=== PATIENT | male | born 1935 | race Caucasian/White ===

== ENCOUNTER 2018-10-23 05:58 | Day surgery (SDC) | payer MEDICARE, OTHER, SELFPAY ==
[2018-10-23] VITALS (8 sets, daily range): BP systolic 63–118; BP diastolic 42–80; PULSE 44–79; RESP 16–18; TEMP 36.1–36.6; O2SAT 89–97; BMI 41.1
--- NOTE | 2018-10-23 06:14 | EKG12_ITS ---
Test Reason : PRE OP Blood Pressure : / mmHG Vent. Rate : 062 BPM Atrial Rate : 062 BPM P-R Int : 216 ms QRS Dur : 136 ms QT Int : 432 ms P-R-T Axes : 050 -33 -03 degrees QTc Int : 438 ms Sinus rhythm with 1st degree A-V block Left axis deviation Right bundle branch block Abnormal ECG No previous ECGs available Confirmed by MARQUISE BARRAGAN, PHANI ([id number]), science editor ALISIA PERRY ([id number]) on 10/26/2018 1:37:45 PM Referred By: Bola Mckoy Confirmed By:PHANI CAMARILLO MD
--- NOTE | 2018-10-23 10:07 | PCM.OPRPT ---
Problem List (1) Zenker diverticula Status: Acute (2) Dysphagia Status: Acute Qualifiers: Dysphagia type: esophageal phase Qualified Code(s): R13.10 - Dysphagia, unspecified Report of Operation Date of Procedure: 10/23/18 Pre-Operative Diagnosis: Zenker's diverticulum, dysphagia Post-Operative Diagnosis: same Surgery/Procedure Performed:: Direct laryngoscopy, esophagoscopy with dilation of cervical esophagus, aborted endoscopic diverticulotomy Description of Surgical Findings:: Tono is an 83-year-old male with a long-standing Zenker's diverticulum. This is resulted in progressive dysphasia which had become bothersome after an observation period of 15 years. Repeat barium esophagram showed a 3 cm left Zenker's diverticulum and the patient was offered attempt at endoscopic diverticulectomy for relief of his swallowing complaints. The risks, alternatives, potential complications, and benefits were discussed at length and any questions answered to the patient and/or caregiver's satisfaction. Witnessed informed consent was obtained in the office, and the patient and/or caregiver was agreeable to proceed. Procedure went as follows: The patient was identified in the preoperative holding and brought to the operating room, placed under general anesthesia, and intubated. When appropriate anesthesia was obtained, the head of bed was rotated and the patient prepped and draped in usual sterile fashion. A dental guard or moistened gauze was then placed to protect the upper gums and the Weerda laryngoscope then introduced. Direct laryngoscopy was then carried out. The lateral posterior pharyngeal wall mucosa, tonsillar fossa, vallecula, piriforms, and epiglottis were noted to be normal in appearance. The true and false vocal folds were normal in appearance. The cervical esophageal inlet was then visualized. This is noted to be very tight which barely admitted the end of the laryngoscope. An NG tube placement was then attempted however this entered the diverticulum and was unable to be blindly placed down into the esophagus. Given this the lower endoscope was then withdrawn and a rigid esophagoscope introduced. The esophageal lumen was identified to the right of the diverticulum. The cricopharyngeal band was able to be identified however this was very difficult to bring into view given his limited jaw opening and his macroglossia. Using the esophagoscope the cricopharyngeus was dilated which did allow for then passage of the NG tube through the esophagus which was confirmed with aspiration of gastric contents. An attempt was then made to follow this with the [place], however once the cricopharyngeal band was brought into view the scope was unable to be opened to a point that would allow for the endoscopic stapler to be placed or to separate to the esophageal and diverticular lumen. Given this severe restriction of visualization and the risk for injury the attempt at the endoscopic diverticulectomy was then aborted. The endoscope was then withdrawn and the patient returned to anesthesia, was revived, and extubated without complication having tolerated the procedure well. I am hopeful that the dilation of the cricopharyngeus which was quite tight give him some improved relief and should he continue to have trouble and external diverticulectomy may be considered. Type of Anesthesia:: General Anesthesiologist: Nehemiah Edouard Special Medications: none Specimen's removed: none Drains: none Estimated Blood Loss (mL): 5 mL Fluids Replaced: 1200 mL Grafts/Implants Used: none - Complications none - Admit VTE Documentation VTE Present on Admission: No VTE Mechan Device Prophylaxis: SCD's VTE Pharm Prophylaxis ordered?: No
--- NOTE | 2018-10-23 10:20 | DCINST_ITS ---
- Discharge Diagnoses Current Active Problems: Current Active and Chronic Problems Zenker diverticula (Acute) Dysphagia (Acute) You will use the following diet at home:: Regular Your food should be the consistency of: Mechanical soft (ground) Your liquids should be the consistency of: Regular/Thin Discharge Activity: Return to Normal Activity Call your doctor if your incision/area has: Increased Pain/ Swelling Call your doctor if you observe: Fever of 101 or Higher, Uncontrolled pain Allergies/Adverse Reactions: Allergies Sulfa (Sulfonamide Antibiotics) Allergy (Verified 10/16/18 13:06) Unknown Medications to take at Discharge Allopurinol [Zyloprim] 150 mg PO DAILY 10/16/18 Apixaban [Eliquis] 5 mg PO BID 10/16/18 Furosemide [Lasix] 20 mg PO DAILY 10/16/18 Ranitidine HCl [Zantac] 150 mg PO BID 10/16/18 Vit C/E/Zn/Coppr/Lutein/Zeaxan [Preservision Areds 2 Softgel] 1 ea PO BID 10/16/18 Primary Care Physician: KANDICE PATINO [Other] Test Results: Test results from this visit will be discussed in further detail at your follow- up appointment, if applicable. Please Follow Up With: Bola Mckoy MD When: 2 weeks
[2018-10-23] MEDS: Lactated Ringers 1,000 ML 75 ML IV (10:48)
== END 2018-10-23 12:43 | disposition home or self-care (01) ==
LOC: SDC 06:00 → AC 06:03
PROVIDERS: Referring Provider Otolaryngology; Visit Provider Otolaryngology
PROC: (CPT 31528; principal; 2018-10-23 07:55)
DX: K22.5 Diverticulum of esophagus, acquired (principal); R13.10 Dysphagia, unspecified; Q38.2 Macroglossia; K21.9 Gastro-esophageal reflux disease without esophagitis; M19.90 Unspecified osteoarthritis, unspecified site; G47.30 Sleep apnea, unspecified; Z86.718 Personal history of other venous thrombosis and embolism; Z86.711 Personal history of pulmonary embolism; Z87.891 Personal history of nicotine dependence; Z79.02 Long term (current) use of antithrombotics/antiplatelets; Z79.899 Other long term (current) drug therapy
CPT/HCPCS: 31528; 93005; J7120